=== PATIENT | male | born 2000 | race Caucasian/White ===

== ENCOUNTER 2023-07-11 11:00 | Emergency (ER) | payer BC, SELFPAY ==
[2023-07-11 11:12] VITALS: BP 130/73
[2023-07-11 12:52] VITALS: BMI 23.5
[2023-07-11 13:14] LABS: % Basophils 0.7 % (0-2); % Eosinophils 1.1 % (0-6); % Immature Granulocytes 0.3 % (0-0.5); % Lymphocytes 16.7 % (20.5-51.1); % Monocytes 4.1 % (1.7-9.3); % Neutrophils 77.1 % (42.2-75.2); Absolute Basophils 0.1 10^3/uL (0-0.2); Absolute Eosinophils 0.1 10^3/uL (0-0.7); Absolute Lymphocytes 1.5 10^3/uL (1.2-3.4); Absolute Monocytes 0.4 10^3/uL (0.1-0.6); Absolute Neutrophils 7.1 10^3/uL (1.4-6.5); Hematocrit 40.3 % (39.0-52.0); Hemoglobin 14.1 g/dL (13.0-18.0); Mean Corpuscular Hgb 31.9 pg (27.0-31.0); Mean Corpuscular Volume 91.2 fL (80.0-94.0); Mean Platelet Volume 9.7 fL (7.4-10.4); Nucleated Red Blood Cells % 0 % (-); Platelet Count 373 10^3/uL (130-400); Red Blood Cell Count 4.42 10^6/uL (4.70-6.10); Red Cell Dist. Width 11.9 % (11.5-14.5); White Blood Cell Count 9.2 10^3/uL (4.8-10.8)
--- NOTE | 2023-07-11 13:20 | ED.GENMED ---
History of Present Illness
<Leti Landis PA-C - Last Filed: 07/11/23 18:39>
General
Chief Complaint: Post Operative Problem(s)
Source: patient and family (mother at bedside)
Exam Limitations: none
Time Seen by Provider: 07/11/23 12:56
Nursing documentation reviewed up to this point in time: agreed with
Travel History
Have you had any contact with someone who has COVID-19?: No
Do you have any symptoms of coronavirus? Fever > 100 degrees, chills, cough, shortness of breath, sore throat, loss of taste or smell, muscle aches, or headache?: No
History of Present Illness
History of Present Illness:
Patient is a 22-year-old male presenting with mother to emergency department for evaluation of redness and swelling of left foot. He is 18 days postop from the tibia/fibula repair. He reports that he fractured his tibia/fibula while slipping on
ice on 06/22/2023. He had surgery performed the next day at [facility] with Dr. Wright. The surgery was without complications. He has his first follow-up appointment scheduled tomorrow with Dr. Wright.
He has been taking oxycodone as needed for pain, meloxicam, baby aspirin. Last night he he had worse pain in left foot and left toes�they noticed redness, swelling, warmth. This morning he spoke to Dr. Shay who recommended evaluation in the
emergency department to rule out infection or blood clot. Both patient and patient's mom thinks that the swelling and redness of foot look much better than it did earlier today.
Patient denies any fever, chills, chest pain, shortness of breath. He feels well overall
Phy Exam
<Leti Landis PA-C - Last Filed: 07/11/23 18:39>
Physical Exam
Physical Exam:
General: Well appearing and non-toxic
Vitals: Vital signs are stable, patient afebrile
HEENT: Atraumatic, normocephalic; pupils equal round reactive to light bilaterally, protecting airway
Neck: appears supple
CV: Regular rate and rhythm, heart sounds normal, no evidence of cyanosis
Resp: No evidence of respiratory distress, no accessory muscle use
Abd: Soft, nontender, non-distended
Extremities: Left foot with diffuse mild erythema and swelling; DP pulses intact, normal capillary refill
Neuro: alert and oriented, speech normal, no focal neurologic deficits
Psych: Normal affect
Skin: Incision sites on left lower extremity are clean, dry, intact without red streaking or draininage
Course
<Leti Landis PA-C - Last Filed: 07/11/23 18:39>
Orders/Labs/Results
Orders:
Orders
07/11/23 11:20
Periph Venous Lwr Ext Left US [US Periph Venous LOWER Ext LT] Urgent
Comment:
Reason For Exam: r/o DVT
07/11/23 12:55
CMP [Comprehensive Metabolic Panel] Urgent
Complete Blood Count/With Diff Urgent
Abnormal Lab Results
07/11/23
12:55
RBC 4.42 L 10^6/uL
(4.70-6.10)
MCH 31.9 H pg
(27.0-31.0)
Absolute Neuts (auto) 7.1 H 10^3/uL
(1.4-6.5)
Neutrophils % 77.1 H %
(42.2-75.2)
Lymphocytes % 16.7 L %
(20.5-51.1)
BUN 28 H mg/dl
(9-20)
07/11/23 12:55
07/11/23 12:55
Vital Signs
Initial and Last Documented VS:
Initial Vital Signs
Temp Pulse Resp BP Pulse Ox
98.0 F 87 20 130/73 98
07/11/23 11:12 07/11/23 11:12 07/11/23 11:12 07/11/23 11:12 07/11/23 11:12
Last Documented Vital Signs
Temp Pulse Resp BP Pulse Ox
98.0 F 82 16 126/78 98
07/11/23 11:12 07/11/23 14:25 07/11/23 14:25 07/11/23 14:25 07/11/23 14:25
<Jai Kenyon, DO - Last Filed: 07/11/23 14:46>
Orders/Labs/Results
Orders:
Orders
07/11/23 11:20
Periph Venous Lwr Ext Left US [US Periph Venous LOWER Ext LT] Urgent
Comment:
Reason For Exam: r/o DVT
07/11/23 12:55
CMP [Comprehensive Metabolic Panel] Urgent
Complete Blood Count/With Diff Urgent
Abnormal Lab Results
07/11/23
12:55
RBC 4.42 L 10^6/uL
(4.70-6.10)
MCH 31.9 H pg
(27.0-31.0)
Absolute Neuts (auto) 7.1 H 10^3/uL
(1.4-6.5)
Neutrophils % 77.1 H %
(42.2-75.2)
Lymphocytes % 16.7 L %
(20.5-51.1)
BUN 28 H mg/dl
(9-20)
07/11/23 12:55
07/11/23 12:55
Vital Signs
Initial and Last Documented VS:
Initial Vital Signs
Temp Pulse Resp BP Pulse Ox
98.0 F 87 20 130/73 98
07/11/23 11:12 07/11/23 11:12 07/11/23 11:12 07/11/23 11:12 07/11/23 11:12
Last Documented Vital Signs
Temp Pulse Resp BP Pulse Ox
98.0 F 82 16 126/78 98
07/11/23 11:12 07/11/23 14:25 07/11/23 14:25 07/11/23 14:25 07/11/23 14:25
<MARIANA Pena-Salena - Last Filed: 07/11/23 18:39>
MDM/Problems Addressed
Differential Diagnosis Includes:
post-operative pain/swelling, DVT, cellulitis, osteomyelitis,
MDM/Problems Addressed:
Patient is a 22-year-old male postop day 18 from tibia/fibula repair by Dr. Wright at [facility]. His postoperative course has been unremarkable to this point. Last night he had increasing pain and this morning his left foot was found to be much more
red and swollen than previously. He spoke to his orthopedic surgeon who recommended evaluation Emergency Department to rule out a blood clot or infection. Patient has first follow-up from surgery scheduled for tomorrow with Dr. Wright. Patient is
well-appearing on exam, his vital signs are stable. He is afebrile. Heart rate normal. Patient is some diffuse swelling of left lower extremity consistent with postsurgical changes. No signs indicating active infection. His incisions are clean,
dry, intact without expression of any pus or drainage. Ultrasound of left lower extremity is negative for any evidence of DVT. CBC without any clinically significant abnormalities. His white blood cell count is normal. CMP elevation in BUN to 28
likely due to dehydration. Otherwise no abnormalities noted.
Based on blood work and physical exam�do not suspect current infection. No evidence of DVT on ultrasound. He has remained stable in emergency department. He is stable for discharge with follow-up with orthopedic surgeon tomorrow morning with
regularly scheduled appointment, return precautions. Patient and patient's mom are comfortable this plan. All questions answered.
Chronic conditions affecting care:
Tibia/Fibula repair
Acute Exacerbation and/or Progression of Chronic Illness:
Swelling, post-operative swelling
<Leti Landis PA-C - Last Filed: 07/11/23 18:39>
*Radiology
Radiology exam reviewed: radiology read reviewed
*Pulse Oximetry
Patient hypoxic: no
*[place] Interpretation
Rate: [place] Viner- N/A
*Critical Care Note
Total Time (30-74mins, 75-104mins- exclusive of procedures): Not Applicable
ED Attending Note
<Leti Landis PA-C - Last Filed: 07/11/23 18:39>
-
Portions of this chart may have been created with voice recognition software.� Occasional wrong word or��sound alike� substitutions may have occurred due to the inherent limitations of voice recognition software.
<Jai Kenyon DO - Last Filed: 07/11/23 14:46>
ED Attending Note
Patient seen and examined by attending physician: Yes
I performed the substantive portion of visit, reviewed & personally made and approve the management plan that is documented in note by myself or MAYCOL.: Yes
I performed a history and physical exam of patient and discussed management with resident, I reviewed resident's note and agree with documented findings and plan of care.: Yes
ED Attending Note:
I evaluated patient at bedside. There is some diffuse soft tissue swelling to the left lower extremity but no clear sign of infection based on physical examination. White blood cell count normal.
Discharge Plan
Departure
Patient Disposition: Home (Routine Discharge)
Date of Disposition: 07/11/23
Time of Disposition: 13:51
Patient with high blood pressure during this ER visit?: Yes
Condition: Good
Covid-19: Not Applicable
Discharge Problem:
Swelling of left foot, post-operative swelling
Instructions: Dependent Edema (DC), BLOOD PRESSURE
Referrals:
Chalino Taylor CRNP [Family Provider] -
Activity Restrictions/Additional Instructions:
-Return to the emergency room with any high fevers, shortness of breath, chest pain, significant pain in left foot, significant swelling in left foot, numbness or tingling in left foot, any signs of infection: High fevers, significant
redness/warmth/swelling of foot, pus draining from incision sites, or any other concerns
-Try to elevate foot as often as possible to reduce swelling
-As discussed - you should keep follow-up with your orthopedic surgeon for tomorrow.
Interventions
Interventions:
*Risk Screen - Suicide Last Done: 07/11/23 12:50
*General Assessment Last Done: 07/11/23 11:12
*Neglect/Abuse Screening Last Done: 07/11/23 12:50
ED- Fall Risk Assessment Last Done: 07/11/23 12:50
*ED COVID-19 Vaccine History Last Done: 07/11/23 12:50
*Nursing Disposition Last Done: 07/11/23 14:25
ED-Skin Assessment Last Done: 07/11/23 12:50
Discharge Date and Time
Discharge Date/Time: 07/11/23 14:15
[2023-07-11 13:27] LABS: ALT (SGPT) 29 U/L (0-50); AST (SGOT) 31 U/L (17-59); Albumin 4.6 g/dl (3.5-5.0); Alkaline Phosphatase 64 U/L (38-126); Blood Urea Nitrogen 28 mg/dl (9-20); Calcium 9.8 mg/dl (8.4-10.2); Carbon Dioxide 30 mmol/L (22-30); Chloride 102 mmol/L (98-107); Estimated Creatinine Clearance 105 ml/min; Glucose 85 mg/dl (70-99); Potassium 4.2 mmol/L (3.5-5.1); Sodium 139 mmol/L (135-145); Total Protein 7.4 g/dl (6.3-8.2); eGFR > 60.00
--- NOTE | 2023-07-11 14:23 | EDRN ---
Discharge instructions given to patient by Leti Landis PA-C.
[2023-07-11 14:25] VITALS: BP 126/78
== END 2023-07-11 14:15 | disposition home or self-care (01) ==
LOC: EMR 11:00
PROVIDERS: EMERGENCY PHYSICIAN Emergency Medicine; FAMILY PHYSICIAN Nurse Practitioner Family
DX: R22.42 Localized swelling, mass and lump, left lower limb (principal); Z98.890 Other specified postprocedural states
CPT/HCPCS: 99284; 80053; 85025; 93971

== ENCOUNTER 2023-09-01 15:45 | Outpatient (RCR) | payer BC, SELFPAY | END 2023-09-01 23:59 | disposition home or self-care (01) | LOC: RPT 15:45 | PROVIDERS: ATTENDING PHYSICIAN Physician Assistant; FAMILY PHYSICIAN Nurse Practitioner Family | DX: S82.865D Nondisplaced Maisonneuve's fracture of left leg, subsequent encounter for closed fracture with routine healing (principal); M25.572 Pain in left ankle and joints of left foot; R26.9 Unspecified abnormalities of gait and mobility; Z73.6 Limitation of activities due to disability | CPT/HCPCS: 97010; 97110; 97112; 97116; 97140; 97162 ==

== ENCOUNTER 2023-10-02 12:14 | Outpatient (RCR) | payer BC, SELFPAY | END 2023-10-02 23:59 | disposition home or self-care (01) | LOC: RPT 12:14 | PROVIDERS: ATTENDING PHYSICIAN Physician Assistant; FAMILY PHYSICIAN Nurse Practitioner Family | DX: S82.865D Nondisplaced Maisonneuve's fracture of left leg, subsequent encounter for closed fracture with routine healing (principal); M25.572 Pain in left ankle and joints of left foot; R26.9 Unspecified abnormalities of gait and mobility; Z73.6 Limitation of activities due to disability | CPT/HCPCS: 97010; 97110; 97112; 97116; 97140; 97530 ==

== ENCOUNTER 2023-10-27 13:06 | Outpatient (RCR) | payer BC, SELFPAY | END 2023-10-31 07:55 | disposition home or self-care (01) | LOC: RPT 13:06 | PROVIDERS: ATTENDING PHYSICIAN Physician Assistant; FAMILY PHYSICIAN Nurse Practitioner Family | DX: S82.865D Nondisplaced Maisonneuve's fracture of left leg, subsequent encounter for closed fracture with routine healing (principal); M25.572 Pain in left ankle and joints of left foot; R26.9 Unspecified abnormalities of gait and mobility; R26.2 Difficulty in walking, not elsewhere classified; Z73.6 Limitation of activities due to disability | CPT/HCPCS: 97110; 97112; 97530; 97535 ==

== ENCOUNTER → 2024-03-16 08:31 | Outpatient (REF) | payer BC, SELFPAY ==
[2024-03-16 10:00] LABS: % Basophils 0.7 % (0-2); % Eosinophils 1.3 % (0-6); % Immature Granulocytes 0.3 % (0-0.5); % Lymphocytes 29.2 % (20.5-51.1); % Monocytes 7.2 % (1.7-9.3); % Neutrophils 61.3 % (42.2-75.2); Absolute Basophils 0.1 10^3/uL (0-0.2); Absolute Eosinophils 0.1 10^3/uL (0-0.7); Absolute Lymphocytes 2.2 10^3/uL (1.2-3.4); Absolute Monocytes 0.5 10^3/uL (0.1-0.6); Absolute Neutrophils 4.6 10^3/uL (1.4-6.5); Hematocrit 44.5 % (39.0-52.0); Hemoglobin 14.9 g/dL (13.0-18.0); Mean Corp Hgb Conc. 33.5 g/dL (33.0-37.0); Mean Corpuscular Hgb 30.7 pg (27.0-31.0); Mean Corpuscular Volume 91.6 fL (80.0-94.0); Mean Platelet Volume 11.5 fL (7.4-10.4); Nucleated Red Blood Cells % 0 % (-); Platelet Count 217 10^3/uL (130-400); Red Blood Cell Count 4.86 10^6/uL (4.70-6.10); White Blood Cell Count 7.5 10^3/uL (4.8-10.8)
[2024-03-16 10:40] LABS: ALT (SGPT) 25 U/L (0-50); AST (SGOT) 28 U/L (17-59); Blood Urea Nitrogen 18 mg/dl (9-20); Calcium 9.8 mg/dl (8.4-10.2); Carbon Dioxide 24 mmol/L (22-30); Chloride 105 mmol/L (98-107); Direct Bilirubin 0.1 mg/dl (0.0-0.4); Glucose 90 mg/dl (70-99); Potassium 4.6 mmol/L (3.5-5.1); Sodium 143 mmol/L (135-145); Total Bilirubin 1.2 mg/dl (0.2-1.3); eGFR > 60.00
== END ==
LOC: REG 08:31
PROVIDERS: ATTENDING PHYSICIAN Nurse Practitioner Family
DX: L98.9 Disorder of the skin and subcutaneous tissue, unspecified (principal); E80.4 Gilbert syndrome; Z00.00 Encounter for general adult medical examination without abnormal findings
CPT/HCPCS: 36415; 80048; 82247; 82248; 84450; 84460; 85025